=== PATIENT | male | born 1975 | race Caucasian/White ===

== ENCOUNTER 2021-03-31 12:12 | Emergency (ER) | payer OTHER, SELFPAY ==
[2021-03-31 12:43] VITALS: BP 139/92; PULSE 56; RESP 18; TEMP 37; O2SAT 98; BMI 30.8
--- NOTE | 2021-03-31 14:29 | ED_ITS ---
HPI - Allergic Reaction General Chief complaint: Allergic Reaction Stated complaint: allergic reaction to bee sting Time Seen by Provider: 03/31/21 14:12 Source: patient Mode of arrival: ambulatory Limitations: no limitations History of Present Illness HPI narrative: 45-year-old male presenting to the ED after he was seen at the urgent care for an allergic reaction status post bee sting with anaphylactic reaction where he had swelling to his face and his arms and hives everywhere along with difficulty breathing therefore he took 50 mg of Benadryl then he went to urgent care where they give him 0.3 mg of epi and monitor him for 3-4 hours although they wanted him to come here for further evaluation treatment and possible repeat epi injection. Patient reports he feels much better all his symptoms have resolved. He reports he has never had an allergic reaction to a bee sting he actually was stung by a bee approximately 3-4 days ago where his right ear swelled up although he had no other symptoms. He denies any other symptoms complaints or concerns at this time MD complaint: allergic reaction, hives and facial swelling Onset (ago): hour(s) (Prior to arrival) Exposure: insect bite (Bee sting) Symptoms: rash, itching, facial swelling and difficulty breathing Severity: severe Treatment prior to arrival: benadryl, epinephrine and other (Claritin) Previous Allergic Reaction History: none Related Data Previous Rx's Medication Instructions Recorded diphenhydramine HCl 25 mg tablet 50 mg PO Q8H PRN #20 tab 03/31/21 (Benadryl Allergy) epinephrine 0.3 mg/0.3 mL 0.3 mg IM Q20M PRN #2 ea 03/31/21 injection, auto-injector (EpiPen) famotidine 20 mg tablet (Pepcid) 20 mg PO BID #10 tab 03/31/21 prednisone 20 mg tablet 40 mg PO DAILY 5 Days #10 tab 03/31/21 Allergies Allergy/AdvReac Type Severity Reaction Status Date / Time No Known Allergies Allergy Verified 03/31/21 14:28 Review of Systems Review of Systems: Constitutional : No Fever, No Chills , no body aches, no recent illness Head/Face: No facial swelling, No facial redness ENT/Mouth : No oral/throat swelling, No Hoarseness, No Swallowing Difficulty Eyes: No Eye Pain, No Swelling, No Redness Cardiovascular : No Chest Pain, No SOB, No palpitations Respiratory : No Cough, No Sputum, No Wheezing, No Smoke Exposure, No Dyspnea Gastrointestinal : No Nausea, No Vomiting, No Diarrhea, No abdominal Pain Genitourinary : No Dysuria, No Urinary Frequency, No Hematuria Musculoskeletal : No joint pain, No Myalgias, No Joint Swelling Skin : No Skin Lesions, positive rash Neuro : No Weakness, No Numbness, No Headache, No dizziness, No tingling Psych : No Anxiety/Panic, No Depression Heme/Lymph: No Bruising, No Lymphadenopathy Endocrine : No Polyuria, No Polydipsia Denies changes in lotions or detergents. Denies new medications or any changes in medications. Denies drainage from rash. Denies any recent sick contacts or recent travel. Yes all other systems are reviewed and are negative [facility] Past Medical History Attestation statement: The following information was validated with the patient. Medical History Hyperlipidemia Social History Social History Advance Directives: Yes Advance Directives Information Provided: Yes Advance Directives on File: No Physical Exam Vital Signs: Vital Signs: Last Vital Signs Temp 98.6 F 03/31/21 12:43 Pulse 56 03/31/21 12:43 Resp 18 03/31/21 12:43 BP 139/92 H 03/31/21 12:43 Pulse Ox 98 03/31/21 12:43 Body Mass Index 30.8 vital signs have been reviewed as normal and appeared to be correct. Blood pressure normal. Heart rate normal. Respiration rate normal. Temperature normal. Oxygen saturation normal. Appearance: Alert. Oriented X3. No acute distress. Head: Normal external exam. Normocephalic. Atraumatic. No Estrada signs noted. No raccoon eyes noted Eyes: PERRLA. EOMI. Conjunctiva and sclera normal. Eyelids normal. ENT: EAC normal. TM's Normal. Pharynx normal. Uvula midline. Moist mucous membranes. No trismus noted. No drooling noted. No muffled voice noted. Neck: Normal inspection. Neck supple. FROM. No adenopathy. Thyroid Normal. No meningeal signs. No neck mass noted. CVS: Normal heart rate and rhythm. Heart sound normal. Pulses normal throughout. No murmurs/rales/gallops. Respiratory: No respiratory distress. Painless inspiration. Breath sounds normal. No wheezes/rales/rhonchi noted. Chest nontender. No accessory muscle usage noted or decreased air movement noted. Abdomen: Soft and nontender. Bowel sounds normal in all 4 quadrants. No distention noted. No organomegaly noted. No visible injury noted. Back: No CVA tenderness. Full range of motion noted. No rashes/lesion/induration/fluctuance or signs of infection noted. Skin: Skin warm and dry. Normal skin color. Normal skin turgor. No rashes/lesions/lacerations noted. Extremities: No lower extremity edema. Extremities exhibit normal range of motion. Extremities nontender. Neuro: Oriented X 3. No motor deficit. No sensory deficit. Reflexes normal. Normal steady gait. No focal neuro deficits noted. Vascular: + radial pulses/+ 2 distal pedal pulses/+2 dorsalis pedis b/l. Normal cap refill. No cyanosis noted to upper extremity nails and lower extremity toes nails. Course Course Course Narrative: 45-year-old male presenting to the ED after he was monitored at the urgent care 3-4 hours after receiving epi for an allergic reaction/anaphylaxis from a bee sting. He was sent here for further evaluation treatment. On exam patient is asymptomatic at this time all his symptoms have already resolved. He also took Claritin and Benadryl. Therefore at this time will DC home with steroids, Benadryl, Pepcid and an EpiPen along with instruc tions to follow-up with his primary care provider to have allergy testing and to return if any new or worsening symptoms. Patient understands agrees with this plan. MDM - Allergic Reaction Medical Records Attestation: I reviewed the patient's medical records. Discharge Plan Discharge Clinical Impression: Allergic reaction, Anaphylaxis Patient Disposition: Home, Self-Care Instructions: Insect Bite or Sting (ED), Anaphylaxis (ED), General Allergic Reaction (ED), Allergy Testing (ED) Prescriptions: New diphenhydramine HCl [Benadryl Allergy] 25 mg tablet 50 mg PO Q8H PRN (Reason: allergic reaction) Qty: 20 RF: 0 famotidine [Pepcid] 20 mg tablet 20 mg PO BID Qty: 10 RF: 0 prednisone 20 mg tablet 40 mg PO DAILY 5 Days Qty: 10 RF: 0 epinephrine [EpiPen] 0.3 mg/0.3 mL auto-injector 0.3 mg IM Q20M PRN (Reason: anaphylaxis) Qty: 2 RF: 0 Referrals: Ricky Gaytan MD [Primary Care Provider] - 2 days (Patient will need allergy testing please refer to an embossed or impressed lettering painter) Print Language: Bulgarian
[2021-03-31] MEDS: Famotidine 20 MG TABLET PO (14:34)
[2021-03-31] MEDS: predniSONE 20 MG TABLET 60 MG PO (14:34)
[2021-03-31 14:54] VITALS: PULSE 78; RESP 18; O2SAT 98
== END 2021-03-31 14:59 | disposition home or self-care (01) ==
PROVIDERS: Emergency Provider Emergency Medicine; PCP Internal Medicine
DX: T63.441A Toxic effect of venom of bees, accidental (unintentional), initial encounter (principal); T78.2XXA Anaphylactic shock, unspecified, initial encounter; X58.XXXA Exposure to other specified factors, initial encounter
CPT/HCPCS: 99283; 99284

== ENCOUNTER 2022-03-04 11:13 | Emergency (ER) | payer OTHER, SELFPAY ==
--- NOTE | ~2022-03-04 | XR_ITS ---
EXAMINATION: XR FOREARM, LEFT CLINICAL INFORMATION: Laceration, rule out foreign body COMPARISON: None TECHNIQUE: AP and lateral views of the left forearm were obtained. FINDINGS: Soft tissue irregularity compatible with laceration along the distal forearm. No tracking soft tissue gas. No radiodense foreign body. No acute fracture or dislocation. No appreciable elbow joint effusion. Small bone fragment adjacent to the ulnar styloid compatible with a remote avulsive injury. Minimal osteophyte formation/degenerative change at the first CMC joint. XR/XR forearm LT 2V IMPRESSION: 1. No acute osseous injury or radiodense foreign body identified.
[2022-03-04 11:51] VITALS: BP 112/74; PULSE 51; RESP 18; TEMP 36.6; O2SAT 100; BMI 28.7
--- NOTE | 2022-03-04 13:58 | ED_ITS ---
HPI - Wound/Laceration General Chief Complaint: Wound/Laceration Stated Complaint: Forearm lac/work inj Time Seen by Provider: 03/04/22 13:31 Source: patient Mode of arrival: ambulatory Limitations: no limitations History of Present Illness HPI narrative: 46 yo right hand dominant male presents to the ER for evaluation of a laceration to his left forearm sustained at work this morning. Patient was working at [employer] out [employer] in [facility] when a piece of balwinder, old metal pierced his skin and caused an approximately 5cm long laceration to the palmar aspect of his distal left forearm. He was able to control the bleeding with direct pressure and a bandage. He cleaned it out right away with Keisha dish soap. He has fully movement and sensation of his left hand and all digits. He is up to date his tetanus shot. Onset (ago): hour(s) Extremity Location: left: forearm Place: work Patient tetanus UTD: Yes Context: accidental Associated symptoms: none Treatments prior to arrival: bandage Related Data Previous Rx's Medication Instructions Recorded diphenhydramine HCl 25 mg tablet 50 mg PO Q8H PRN allergic reaction 03/31/21 (Benadryl Allergy) #20 tabs epinephrine 0.3 mg/0.3 mL 0.3 mg (0.3 mL) IM Q20M PRN 03/31/21 injection, auto-injector (EpiPen) anaphylaxis #2 ea famotidine 20 mg tablet (Pepcid) 20 mg PO BID rash #10 tabs 03/31/21 prednisone 20 mg tablet 40 mg PO DAILY rash 5 days #10 tabs 03/31/21 amoxicillin 875 mg-potassium 1 tab PO Q12H #14 tabs 03/04/22 clavulanate 125 mg tablet Allergies Allergy/AdvReac Type Severity Reaction Status Date / Time bee pollen [bee stings] Allergy Swelling Verified 03/04/22 13:31 Review of Systems Review of Systems: Constitutional: No Fever, No Chills ENT/Mouth: No sore throat, No Rhinorrhea, No Swallowing Difficulty Cardiovascular: No Chest Pain, No SOB Gastrointestinal: No Nausea, No Vomiting Musculoskeletal: No joint pain Skin: No Skin Lesions, No rash, +Laceration Neuro: No Weakness, No Numbness, No Dizziness, No Headache Psych: No Anxiety/Panic, No Depression Heme/Lymph: No Bruising, No Lymphadenopathy, No easy bleeding or bruising [facility] Past Medical History Medical History Hyperlipidemia Social History Social History Advance Directives: No Advance Directives Information Provided: No Physical Exam 2 Vital Signs: Vital Signs: Last Vital Signs Temp 97.9 F 03/04/22 11:51 Pulse 51 03/04/22 11:51 Resp 18 03/04/22 11:51 BP 112/74 03/04/22 11:51 Pulse Ox 100 03/04/22 11:51 O2 Del Method 03/04/22 11:51 BMI result Body Mass Index 28.7 Appearance: Alert. Oriented X3. No acute distress. HEENT: normal inspection CVS: Normal heart rate and rhythm. Pulses normal. Respiratory: No respiratory distress. Skin: Skin warm and dry. Normal skin color. Normal skin turgor. No rashes. Extremities: palmar aspect of the distal left forearm with a 5cm linear laceration, approximately 2 cm wide with exposed adipose tissue, no visible tendon, no active bleeding, contaminated margins with black dirt. 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 normal sensation. normal abduction and adduction of all digits. Neuro: Oriented X 3. No motor deficit. No sensory deficit. Course Course Course Narrative: 46-year-old male presents to the ER for evaluation of a laceration to his left forearm, sustained at work while working in dirty water with balwinder metal. X-ray reviewed and not show any retained foreign body. He has full motor and sensory movement of his left hand. No apparent nerve damage. No visible tendon. Wound was thoroughly cleansed, scrubbed with Betadine as well as combination of hydrogen peroxide and saline; dirt and grease were successfully debrided. PO Abx given. Reevaluation(s) Reevaluation #1: Patient tolerated wound repair well. margins well approximated. wound care and return precautions were discussed with the patient. he is stable for d/c home. Procedures Laceration Laceration 1: Site: upper extremity Side (If applicable): left Description: linear and contaminated Depth: involves muscle layer (adipose layer) Local Anesthetic: lidocaine 1% Pre-repair: wound explored and irrigated extensively Skin layer closed with: nylon Size (cm): 4-0 Number of sutures: 7 Technique: simple, interrupted Subcutaneous layer closed with: vicryl Size: 5-0 Number of sutures: 2 Technique: simple, interrupted Discharge Plan Discharge Clinical Impression: Laceration Patient Disposition: Home, Self-Care Instructions: Laceration (ED) Additional Instructions: You will need your stitches out in 7-10 days. See you doctor for this or come back to the ER and we will remove them. Do not get wet for 24 hours, after that you can briefly wash with soap and water then pat dry. Use bacitracin 1x per day. Allow open to air when you are home. Keep wound clean and covered when you are at work. Do not submerge in water, no swimming. Take the prescribed antibiotic as directed. Complete the entire course. If you develop signs of infection including increased pain, swelling, redness or drainage of pus come back to the ER for further evaluation. Prescriptions: New amoxicillin-pot clavulanate 875-125 mg tablet 1 tab PO Q12H Qty: 14 0RF No Action diphenhydramine HCl [Benadryl Allergy] 25 mg tablet 50 mg PO Q8H PRN (Reason: allergic reaction) Qty: 20 0RF famotidine [Pepcid] 20 mg tablet 20 mg PO BID Qty: 10 0RF prednisone 20 mg tablet 40 mg PO DAILY 5 Days Qty: 10 0RF epinephrine [EpiPen] 0.3 mg/0.3 mL auto-injector 0.3 mg IM Q20M PRN (Reason: anaphylaxis) Qty: 2 0RF Rx Instructions: do not exceed 3 doses per episode
[2022-03-04] MEDS: Lidocaine HCl 1 % 20 ML VIAL INFILTRATI ×2 (14:30)
[2022-03-04] MEDS: Ibuprofen 600 MG TABLET PO (14:30)
[2022-03-04] MEDS: Amoxicillin/Potassium Clav 875 MG TABLET PO (14:31)
== END 2022-03-04 15:16 | disposition home or self-care (01) ==
PROVIDERS: Emergency Provider Emergency Medicine; PCP Internal Medicine
DX: S51.812A Laceration without foreign body of left forearm, initial encounter (principal); W45.8XXA Other foreign body or object entering through skin, initial encounter; Y93.89 Activity, other specified; Y92.414 Local residential or business street as the place of occurrence of the external cause; Y99.0 Civilian activity done for income or pay
CPT/HCPCS: 12032; 73090; 99283

== ENCOUNTER → 2022-08-02 09:22 | Outpatient (BNVA) | payer SELFPAY | PROVIDERS: PCP Internal Medicine; Visit Provider Physician Assistant | DX: Z02.79 Encounter for issue of other medical certificate (principal) ==

== ENCOUNTER → 2025-04-22 09:30 | Outpatient (BNVA) | payer SELFPAY | PROVIDERS: PCP Internal Medicine; Visit Provider Physician Assistant | DX: Z02.79 Encounter for issue of other medical certificate (principal) ==